=== PATIENT | female | born 1980 | race Caucasian/White ===

== ENCOUNTER → 2022-12-14 | Outpatient (CLI) | payer OTHER | LOC: M PLARAD 10:47 | PROVIDERS: ATTEND Podiatrist | DX: S96.011A Strain of muscle and tendon of long flexor muscle of toe at ankle and foot level, right foot, initial encounter (principal); W18.30XA Fall on same level, unspecified, initial encounter; Y92.009 Unspecified place in unspecified non-institutional (private) residence as the place of occurrence of the external cause ==

== ENCOUNTER 2023-05-18 06:04 | Day surgery (SDC) | payer OTHER ==
[~2023-05-18] VITALS: Ht 162.6 cm; Wt 104.3 kg
[~2023-05-18 06:04] MED LIST: AMLO2.5T3 PO; CYCL-707 PO; HYDR-3490 PO; LEVO50TA5 PO; LISI40TA4 PO; POTA1TAB23 PO; ceFAZolin SOD 2 GM in IV 1 EA IV ONE
[2023-05-18] MEDS ORDERED: fentaNYL 100 MCG/2 ML INJECTION As Ordered ONE ×2 (07:05→13:56)
[2023-05-18] MEDS ORDERED: KETOROLAC 60MG 2ML VIAL As Ordered ONE (07:05)
[2023-05-18] MEDS ORDERED: MIDAZOLAM INJ 2MG/2ML VIAL As Ordered ONE ×2 (07:05→13:56)
[2023-05-18] MEDS ORDERED: ONDANSETRON 4MG 2ML VIAL As Ordered ONE (07:05)
[2023-05-18] MEDS ORDERED: LIDOCAINE 2% 100MG/5ML SDV (FOR ANES.) As Ordered ONE (07:05)
[2023-05-18] MEDS ORDERED: SUGAMMADEX SODIUM 500 MG/5 ML VIAL (BRIDION) As Ordered ONE (07:05)
[2023-05-18] MEDS ORDERED: propofoL 200 MG/20 ML VIAL As Ordered ONE (07:05)
[2023-05-18] MEDS ORDERED: ROCURONIUM BROMIDE 50MG/5ML VIAL As Ordered ONE ×2 (07:05→14:35)
[2023-05-18] MEDS ORDERED: LR 1,000 ML IV SCH ×2 (07:10→18:05)
[2023-05-18] MEDS ORDERED: GENTAMICIN SULF 80MG/2ML VIAL As Ordered ONE ×2 (07:15→13:48)
[2023-05-18] MEDS ORDERED: LIDOCAINE 2% MDV 20ML VIAL As Ordered ONE ×2 (07:16→13:48)
[2023-05-18] MEDS ORDERED: HYDROmorphone HCL 2MG/ML 1ML VIAL As Ordered ONE (14:32)
[2023-05-18] MEDS ORDERED: DESFLURANE 240 ML INHALANT As Ordered ONE (17:18)
[2023-05-18] MEDS ORDERED: oxyCODONE 5MG TAB PO PRN (18:05)
[2023-05-18] MEDS ORDERED: MORPHINE 2 MG/ML 1ML VIAL IV PRN (18:05)
[2023-05-18] MEDS ORDERED: ONDANSETRON 4MG 2ML VIAL IV PRN (18:05)
[2023-05-18] MEDS ORDERED: fentaNYL 100 MCG/2 ML INJECTION IV PRN (18:05)
[2023-05-18] MEDS ORDERED: METOCLOPRAMIDE INJ 10MG/2ML VIAL IV STA (19:42)
[2023-05-18 20:48] VITALS: BP 135/80; TEMP 97; O2SAT 97
== END 2023-05-18 20:55 | disposition home or self-care (01) ==
LOC: M SDC 06:04
PROVIDERS: ATTEND Podiatrist
DX: M76.821 Posterior tibial tendinitis, right leg (principal); I10 Essential (primary) hypertension; E03.9 Hypothyroidism, unspecified; K21.9 Gastro-esophageal reflux disease without esophagitis; Z79.899 Other long term (current) drug therapy; Z87.891 Personal history of nicotine dependence
CPT/HCPCS: 27658; 27680; 27691; 28300; 81025; 88305; C1713; C1769; J0665; J0690; J1100; J1170; J1580; J1885; J2250; J2405; J2765; J3010

== ENCOUNTER → 2024-04-29 | Outpatient (CLI) | payer OTHER ==
[~2024-04-29] MED LIST changes: -ceFAZolin SOD 2 GM in IV 1 EA IV ONE
== END ==
LOC: M PLAIMG 07:29
PROVIDERS: ATTEND Physician Assistant Medical
DX: M25.461 Effusion, right knee (principal); M67.261 Synovial hypertrophy, not elsewhere classified, right lower leg; M25.561 Pain in right knee

== ENCOUNTER 2024-08-20 08:55 | Day surgery (SDC) | payer OTHER ==
[~2024-08-20] VITALS: Ht 162.6 cm; Wt 73.9 kg
[~2024-08-20 08:55] MED LIST changes: +AMLO1TAB24 PO
[2024-08-20] MEDS ORDERED: LR 1,000 ML IV SCH ×2 (09:35→14:55)
[2024-08-20] MEDS: ceFAZolin 2 GM/D5W 50 ML IV BAG As Ordered ONE (12:39)
[2024-08-20] MEDS: TRANEXAMIC ACID 100 MG/ML 10ML VIAL As Ordered ONE (12:50)
[2024-08-20] MEDS: EPINEPHrine INJ 1 MG/ML 1ML AMP As Ordered ONE (13:00)
[2024-08-20] MEDS ORDERED: MIDAZOLAM INJ 2MG/2ML VIAL As Ordered ONE (13:25)
[2024-08-20] MEDS ORDERED: LIDOCAINE 2% 100MG/5ML SDV (FOR ANES.) As Ordered ONE (13:25)
[2024-08-20] MEDS ORDERED: ONDANSETRON 4MG 2ML VIAL As Ordered ONE (13:25)
[2024-08-20] MEDS ORDERED: propofoL 200 MG/20 ML VIAL As Ordered ONE (13:25)
[2024-08-20] MEDS ORDERED: fentaNYL 100 MCG/2 ML INJECTION As Ordered ONE (13:25)
[2024-08-20] MEDS ORDERED: ACETAMINOPHEN 1000MG 100ML IV BAG As Ordered ONE (13:26)
[2024-08-20] MEDS: BACITRACIN OINTMENT 30GM TUBE As Ordered ONE (14:43)
[2024-08-20] MEDS ORDERED: ONDANSETRON 4MG 2ML VIAL IV PRN (14:55)
[2024-08-20] MEDS: fentaNYL 100 MCG/2 ML INJECTION IV PRN (15:00)
[2024-08-20] MEDS ORDERED: PERC5TAB12 PO (15:23)
[2024-08-20] MEDS: oxyCODONE 5MG TAB PO PRN (15:26)
[2024-08-20] MEDS: HYDROMORPHONE HCL 0.5 MG/ 0.5 ML SYRINGE IV PRN (15:27)
[2024-08-20 16:13] LABS: SOURCE, BODY FLUID RT KNEE; SYNOVIAL FLUID COLOR YELLOW (COLORLESS)
[2024-08-20 16:25] VITALS: BP 146/77; TEMP 97.2; O2SAT 98
[2024-08-20 16:59] LABS: CRYSTALS, BODY FLUID CA PYROPHOSPHATE (NONE SEEN); SOURCE, BODY FLUID CRYSTALS RT KNEE
== END 2024-08-20 16:33 | disposition home or self-care (01) ==
LOC: M SDC 08:55
PROVIDERS: ATTEND Orthopaedic Surgery Hand Surgery
DX: M67.262 Synovial hypertrophy, not elsewhere classified, left lower leg (principal); M23.262 Derangement of other lateral meniscus due to old tear or injury, left knee; M67.461 Ganglion, right knee; I10 Essential (primary) hypertension; E03.9 Hypothyroidism, unspecified; Z79.890 Hormone replacement therapy; Z79.899 Other long term (current) drug therapy; Z87.891 Personal history of nicotine dependence; Z90.49 Acquired absence of other specified parts of digestive tract
CPT/HCPCS: 27328; 29882; 81025; 87070; 87075; 87205; 88108; 88305; 89051; 89060; C1713; J0131; J0171; J0665; J0690; J1100; J1171; J2250; J2405; J3010

== ENCOUNTER → 2024-09-27 | Outpatient (CLI) | payer OTHER ==
[~2024-09-27] MED LIST changes: +PERC5TAB12 PO
[2024-09-27 12:56] LABS: BASO # 0.1 10^3/uL (0.0-0.2); BASO % 0.9 % (0.0-1.0); EOS # 0.2 10^3/uL (0.0-0.5); HEMATOCRIT 42.4 % (36.0-47.0); LYMPH # 3.2 10^3/uL (1.5-5.0); MEAN CORPUSCULAR HEMOGLOBIN 29.4 pg (27.0-33.0); MEAN CORPUSCULAR VOLUME 88.9 fl (80.0-96.0); MONO # 0.8 10^3/uL (0.0-0.8); MONO % 7.6 % (2.0-8.0); NEUTROPHILS % 58.3 % (36.0-66.0); PLATELET COUNT, AUTOMATED 296 10^3/uL (150-450); RED BLOOD COUNT 4.77 10^6/uL (4.00-5.40); WHITE BLOOD COUNT 10.2 10^3/uL (4.0-10.0)
[2024-09-27 13:12] LABS: ERYTHROCYTE SEDIMENTATION RATE 23 mm/hr (0-20)
[2024-09-27 13:19] LABS: URIC ACID 4.7 MG/DL (3.1-7.8)
[2024-09-27 13:22] LABS: ALBUMIN 3.7 G/DL (3.2-5.2); ALKALINE PHOSPHATASE 66 U/L (35-104); ALT/SGPT 13 U/L (7.0-40); AST/SGOT 12 U/L (<34); BILIRUBIN,TOTAL 0.6 MG/DL (0.3-1.2); BLOOD UREA NITROGEN 12 MG/DL (9-23); CALCIUM LEVEL 9.5 MG/DL (8.5-10.1); CARBON DIOXIDE LEVEL 31 MMOL/L (20-31); CHLORIDE LEVEL 106 MMOL/L (98-107); CREATININE FOR GFR 0.44 MG/DL (0.55-1.30); GLOMERULAR FILTRATION RATE > 60.0 (>58); GLUCOSE, FASTING 83 MG/DL (60-100); POTASSIUM SERUM 3.6 MMOL/L (3.5-5.1); SODIUM LEVEL 144 MMOL/L (136-145); TOTAL PROTEIN 7.2 G/DL (5.7-8.2)
[2024-09-27 13:24] LABS: RHEUMATOID FACTOR QUANT < 3.5 IU/ML (<14)
[2024-09-30 14:43] LABS: ANA SCREEN, IFA NEGATIVE (NEGATIVE)
== END ==
LOC: M LAB 11:37
PROVIDERS: ATTEND Orthopaedic Surgery Hand Surgery
DX: M23.362 Other meniscus derangements, other lateral meniscus, left knee (principal)

== ENCOUNTER → 2025-04-29 | Outpatient (REF) | payer OTHER ==
[~2025-04-29] MED LIST changes: +LISI40TA10 PO; -LISI40TA4 PO
[2025-04-29 18:51] LABS: C REACTIVE PROTEIN QUANTITATIV 0.85 MG/DL (<1.0); IRON (FE) 37.0 UG/DL (50-170); MAGNESIUM LEVEL 2.1 MG/DL (1.8-2.4); PHOSPHORUS LEVEL 3.9 MG/DL (2.5-4.9)
[2025-04-29 18:56] LABS: PTH INTACT 46.6 PG/ML (18.5-88.0)
== END ==
LOC: M SFHCRHEU 15:01
PROVIDERS: ATTEND Internal Medicine Rheumatology
DX: M11.20 Other chondrocalcinosis, unspecified site (principal); M25.561 Pain in right knee; E87.6 Hypokalemia

== ENCOUNTER → 2025-08-27 | Outpatient (CLI) | payer OTHER | LOC: M PLAIMG 08:24 | PROVIDERS: ATTEND Nurse Practitioner Family | DX: I77.810 Thoracic aortic ectasia (principal); I10 Essential (primary) hypertension ==